=== PATIENT | male | born 1935 | race Caucasian/White ===

== ENCOUNTER 2022-02-26 11:26 | Inpatient (IN) | payer OTHER, MEDICARE ==
[~2022-02-26] VITALS: Ht 177.8 cm; Wt 78.6 kg
[2022-02-26 12:49] LABS: BASO % 0.3 % (0.0-2.0); EOS # 0.1 K/mm3 (0.0-0.7); EOS % 1.5 % (0.0-4.0); GRAN # 3.9 K/mm3 (1.4-6.5); GRAN % 56.3 % (42.2-75.2); HEMATOCRIT 40.3 % (42.0-52.0); HEMOGLOBIN 13.7 g/dl (13.5-18.0); LYMPH # 2.3 K/mm3 (1.2-3.4); LYMPH % 33.9 % (20.0-51.0); MEAN CELL VOLUME 101 fl (80.0-100.0); MEAN CORPUSCULAR HEMOGLOBIN 34 pg (27-31); MEAN CORPUSCULAR HGB CONC 34 g/dl (33.0-37.0); MEAN PLATELET VOLUME 10.5 fl (7.4-10.4); MONO # 0.5 K/mm3 (0.1-0.6); MONO % 7.7 % (1.7-9.3); PLATELET COUNT 214 K/mm3 (130-400); RED BLOOD COUNT 3.99 M/mm3 (4.20-5.60); REDCELL DISTRIBUTION WIDTH-CV 13.3 % (11.5-14.5)
[2022-02-26 13:01] LABS: ALBUMIN 3.9 gm/dL (3.4-4.8); ALKALINE PHOSPHATASE 86 U/L (40-150); ANION GAP 13 mmol/L (7-16); AST,SGOT 12 U/L (5-34); BILIRUBIN,TOTAL 0.8 mg/dL (0.2-1.2); BLOOD UREA NITROGEN 12 mg/dL (8-26); CALCIUM 9.6 mg/dL (8.4-10.2); CARBON DIOXIDE 27 mmol/L (23-31); CHLORIDE 100 mmol/L (98-107); CREATININE, serum 0.74 mg/dL (0.72-1.25); GLUCOSE 102 mg/dL (70-99); LIPASE 27 U/L (8-78); MAGNESIUM 1.3 mg/dL (1.6-2.6); POTASSIUM 4.4 mmol/L (3.5-4.5); SODIUM 140 mmol/L (136-145); TOTAL PROTEIN 7.1 gm/dL (6.2-8.1)
[2022-02-26 13:02] LABS: ALANINE AMINOTRANSFERASE < 6 U/L (0-55)
[2022-02-26 13:20] LABS: TROPONIN-I 0.026 ng/mL (0.00-0.033); TSH w REFLEX 2.697 uIU/mL (0.350-4.940)
[2022-02-26 15:00] VITALS: BP 185/69; PULSE 46; TEMP 98.6
[2022-02-26] MEDS ORDERED: SINEMET 25/101 UDTAB PO (15:25)
[2022-02-26] MEDS ORDERED: COMTAN 200MG T200 MG PO (15:36)
[2022-02-26] MEDS ORDERED: SYNTHROID0.05 MG/TA PO (15:37)
[2022-02-26] MEDS ORDERED: GLUCOTROL 5M5 MG/TAB PO (15:37)
[2022-02-26] MEDS ORDERED: GLUCOPHAGE XR500 M1 PO (15:38)
[2022-02-26] MEDS ORDERED: AZILECT1 MG PO (15:39)
[2022-02-26] MEDS ORDERED: SINEMET CR 50 M1 TER PO (16:03)
[2022-02-26] MEDS ORDERED: FLOMAX 0.40.4 MG/CAP PO (16:04)
[2022-02-26] MEDS ORDERED: LOPRESSOR 225 MG/TAB PO (16:05)
[2022-02-26] MEDS ORDERED: ZESTRIL 10MG10 MG PO (16:05)
[2022-02-26] MEDS ORDERED: ELIQUIS 5MG PO (16:07)
[2022-02-26] MEDS ORDERED: LIPITOR 10MG10 MG PO (16:08)
[2022-02-26] MEDS ORDERED: VITAMIN D31000 IU PO (16:09)
[2022-02-26] MEDS ORDERED: VOLTAREN GEL 1%1 TU TP (16:12)
[2022-02-26 17:16] VITALS: BP 169/63; PULSE 50; TEMP 98.1
--- NOTE | 2022-02-26 18:33 | NUR ---
Patient admitted to room 313 from ED for Afib. Pharmacy, allergies, and medications reviewed. Patient report being allergic to 2 medications, but does not remember what they were. Provider aware. Admission paperwork completed. Patient noted to have glasses and bilateral hearing aides. BP elevated, patient did not take morning BP medications. Jackie aware. Remainder of VSS. Patient A&O. Patient denies any further pain, discomfort, SOA, or further needs at this time. Call light in reach. Fall precautions in place.
--- NOTE | 2022-02-26 19:06 | NUR ---
KEVIN Bird contacted regarding elevated BP. Apresoline orders to be placed.
--- NOTE | 2022-02-26 20:00 | NUR ---
PT SITTING UP IN BED AT THIS TIME, JUST FINISHED 100% OF HIS DINNER. DENIES ANY NEEDS AT THIS TIME. CRITICAL CARE CALLED TO HAVE A LEAD CHECK, ALL LEADS CHECKED AND IN PLACE, UNPLUGGED AND REPLUGGED LEADS, WILL CHECK WITH TELE TO ENSURE PROPER TRASMISSION IS TAKING PLACE. THE PATIENT IS CONTENT AND DOES NOT WANT ANYTHING AT THIS TIME, WILL RETURN FOR ASSESSMENT AND MEDICATIONS.
[2022-02-26 20:18] VITALS: BP 166/61; PULSE 109; TEMP 98.8
[2022-02-26 22:41] VITALS: BP 168/72; PULSE 52; TEMP 98.5
[2022-02-27 03:09] VITALS: BP 157/78; PULSE 57; TEMP 98.6
[2022-02-27 06:36] LABS: BASO % 0.1 % (0.0-2.0); EOS % 0.6 % (0.0-4.0); GRAN # 3.9 K/mm3 (1.4-6.5); GRAN % 54.1 % (42.2-75.2); HEMATOCRIT 41.5 % (42.0-52.0); HEMOGLOBIN 13.5 g/dl (13.5-18.0); LYMPH # 2.6 K/mm3 (1.2-3.4); LYMPH % 36.1 % (20.0-51.0); MEAN CELL VOLUME 104 fl (80.0-100.0); MEAN CORPUSCULAR HEMOGLOBIN 34 pg (27-31); MEAN CORPUSCULAR HGB CONC 33 g/dl (33.0-37.0); MEAN PLATELET VOLUME 11.1 fl (7.4-10.4); MONO # 0.6 K/mm3 (0.1-0.6); PLATELET COUNT 218 K/mm3 (130-400); RED BLOOD COUNT 3.99 M/mm3 (4.20-5.60); REDCELL DISTRIBUTION WIDTH-CV 13.5 % (11.5-14.5)
[2022-02-27 06:43] LABS: ALBUMIN 3.6 gm/dL (3.4-4.8); CALCIUM 9.7 mg/dL (8.4-10.2); CREATININE, serum 0.99 mg/dL (0.72-1.25); MAGNESIUM 1.4 mg/dL (1.6-2.6); PHOSPHOROUS 3.7 mg/dL (2.3-4.7); POTASSIUM 4.1 mmol/L (3.5-4.5)
[2022-02-27 07:43] VITALS: BP 160/78; PULSE 62; TEMP 97.7
--- NOTE | 2022-02-27 08:00 | NUR ---
Pt lying down in bed. VSS taken, BP elevated and P bradycardic. Alert and partially confused. Shift assessment completed. at bedside. Pt remains NPO for possible cardiac procedure. Waiting on [place] to make assessment on the pt. Right Forearm INT in place, no redness or edema. During skin assessment right knee scab noticed and scratch loretta on left side of his body. Fall precautions in place. call light within reach.
[2022-02-27 11:55] VITALS: BP 168/67; PULSE 59; TEMP 97.6
[2022-02-27 15:39] VITALS: BP 145/64; PULSE 62; TEMP 97.8
--- NOTE | 2022-02-27 16:51 | NUR ---
home worker met with patient to complete intake and discuss discharge plan. Patient reports that he lives at home with his Linh ([phone]) in [place]. Patient states that he has to get help with most of his ADL's sfrom his but that "she is disabled as well". Patient states he utilizes a rollator walker to assist with ambultation. He utilizes the [facility] and [facility] ([facility] for PCP needs [facility]. Unknown at this time if the patient has a DPOA-HC established. Discharge plan: pending PT/OT rec's
--- NOTE | 2022-02-27 17:57 | NUR ---
Pt repotitioned in his recliner. Assissted ordering dinner and pt requested help to use the commode. Skin on left side of buttocks has some shear. While helping him to sit back on his commode noticed some redness on left leg and pt expressed some tenderness on bilateral lower extremities as well. Dr Montalvo notified. Call light within reach.
--- NOTE | 2022-02-27 19:22 | NUR ---
THE PATIENT IS SLEEPING AT THIS TIME. HE IS SNORING, WILL HAVE HIS CPAP PUT ON. WILL RETURN FOR NIGHT MEDICINE AND ASSESSMENT BEFORE PUTTING HIS CPAP ON.
[2022-02-27 19:27] VITALS: BP 146/65; PULSE 66; TEMP 98.6
[2022-02-27 22:21] LABS: COLLECTION METHOD CLEAN CATCH
[2022-02-27 22:23] LABS: SQUAMOUS EPITHELIAL None Seen /hpf (0-10); URINE BACTERIA None Seen /hpf (NONE SEEN); URINE RBC 0-2 /hpf (0-2)
[2022-02-27 22:24] LABS: URINE APPEARANCE Clear (CLEAR/HAZY); URINE BLOOD Negative (NEGATIVE); URINE COLOR Yellow (YELLOW); URINE GLUCOSE TRACE (NEGATIVE); URINE KETONE Negative (NEGATIVE); URINE NITRATE Negative (NEGATIVE); URINE PROTEIN(semi-quant) Negative (NEGATIVE); URINE UROBILINOGEN 0.2 E.U/dL (0.2-1.0)
[2022-02-27 23:55] VITALS: BP 141/68; PULSE 69; TEMP 98.1
[2022-02-28] VITALS (10 sets, daily range): BP systolic 109–154; BP diastolic 46–104; PULSE 61–92; TEMP 97.4–98.7
--- NOTE | 2022-02-28 05:26 | NUR ---
PT HAS HAD AN UNEVENTFUL NIGHT. HAD A DIFFICULT TIME SLEEPING HE WAS UP TO USE THE BATHROOM AND TO COUGH UP SPIT A LOT. DENIES ANY PAIN, HOWEVER COULD NOT GET COMFORTABLE. NO OTHER CONCERNS FROM THE PATIENT AT THIS TIME. PT IS NPO FOR THE PLACEMENT ON HIS PACEMAKER PLANNED FOR TODAY.
[2022-02-28 06:08] LABS: BASO % 0.2 % (0.0-2.0); EOS # 0.1 K/mm3 (0.0-0.7); GRAN # 4.6 K/mm3 (1.4-6.5); GRAN % 57.3 % (42.2-75.2); HEMATOCRIT 40.2 % (42.0-52.0); HEMOGLOBIN 13.4 g/dl (13.5-18.0); LYMPH # 2.6 K/mm3 (1.2-3.4); LYMPH % 32.6 % (20.0-51.0); MEAN CELL VOLUME 103 fl (80.0-100.0); MEAN CORPUSCULAR HEMOGLOBIN 34 pg (27-31); MEAN CORPUSCULAR HGB CONC 33 g/dl (33.0-37.0); MEAN PLATELET VOLUME 10.9 fl (7.4-10.4); MONO # 0.7 K/mm3 (0.1-0.6); MONO % 8.5 % (1.7-9.3); PLATELET COUNT 201 K/mm3 (130-400); RED BLOOD COUNT 3.91 M/mm3 (4.20-5.60); REDCELL DISTRIBUTION WIDTH-CV 13.4 % (11.5-14.5)
[2022-02-28 06:27] LABS: ALBUMIN 3.3 gm/dL (3.4-4.8); CALCIUM 9.1 mg/dL (8.4-10.2); CREATININE, serum 0.83 mg/dL (0.72-1.25); MAGNESIUM 1.5 mg/dL (1.6-2.6); PHOSPHOROUS 3.2 mg/dL (2.3-4.7); POTASSIUM 4.1 mmol/L (3.5-4.5)
--- NOTE | 2022-02-28 16:56 | NUR ---
side door worker met with patient,patient's and patient's son at bedside to discuss discharge plan. SW review PT/OT recommendations of skilled therapy. Patient's reports that the patient has been to [facility] multiple times in the past. Caridology arrives to take patient for heart cath. Patient's clinical referral faxed to: [facility]
--- NOTE | 2022-02-28 18:00 | NUR ---
PATIENT AWAKE, ALERT AND ORIENTED. NO COMPLAINTS AT THIS TIME. SITTING UP IN BED. ICE TO L UPPER CHEST. VITAL SIGNS STABLE. PATIENT CURRENTLY EATING, WITH NO DIFFICULTYS. DOES NEED ASSISTANCE TO EAT AND DRINK.
[2022-03-01 04:55] VITALS: BP 133/65; PULSE 76; TEMP 97.4
[2022-03-01 06:11] LABS: BASO % 0.2 % (0.0-2.0); EOS # 0.1 K/mm3 (0.0-0.7); EOS % 0.8 % (0.0-4.0); GRAN # 5.8 K/mm3 (1.4-6.5); HEMATOCRIT 39.6 % (42.0-52.0); HEMOGLOBIN 13.8 g/dl (13.5-18.0); LYMPH # 2.3 K/mm3 (1.2-3.4); LYMPH % 25.9 % (20.0-51.0); MEAN CELL VOLUME 100 fl (80.0-100.0); MEAN CORPUSCULAR HEMOGLOBIN 35 pg (27-31); MEAN CORPUSCULAR HGB CONC 35 g/dl (33.0-37.0); MEAN PLATELET VOLUME 11.2 fl (7.4-10.4); MONO # 0.7 K/mm3 (0.1-0.6); MONO % 7.9 % (1.7-9.3); PLATELET COUNT 198 K/mm3 (130-400); RED BLOOD COUNT 3.95 M/mm3 (4.20-5.60); REDCELL DISTRIBUTION WIDTH-CV 13.2 % (11.5-14.5)
[2022-03-01 06:35] LABS: ALBUMIN 3.2 gm/dL (3.4-4.8); CALCIUM 8.8 mg/dL (8.4-10.2); CREATININE, serum 0.86 mg/dL (0.72-1.25); MAGNESIUM 1.5 mg/dL (1.6-2.6); PHOSPHOROUS 3.2 mg/dL (2.3-4.7); POTASSIUM 4.1 mmol/L (3.5-4.5)
[2022-03-01 07:19] VITALS: BP 138/76; PULSE 78; TEMP 98
[2022-03-01 11:31] VITALS: BP 120/60; PULSE 72; TEMP 98.1
--- NOTE | 2022-03-01 12:12 | NUR ---
Nathalie with [facility] is unable to accept this patient as they do not have a bed.
[2022-03-01 16:01] VITALS: BP 94/56; BP 994/56; PULSE 69; TEMP 98
--- NOTE | 2022-03-01 19:18 | NUR ---
BEGINNING OF SHIFT: PATIENT RESTING QUIETLY IN BED. PATIENT DENIES NEEDS.
[2022-03-01 19:49] VITALS: BP 100/56; PULSE 70; TEMP 97.6
[2022-03-02] VITALS (12 sets, daily range): BP systolic 90–132; BP diastolic 50–77; PULSE 65–98; TEMP 97.6–98.5
--- NOTE | 2022-03-02 01:17 | NUR ---
PATIENT BLOOD PRESSURE 90/50 MANUALLY. PROVIDER NOTIFIED AND RECEIVED ORDER FOR 500 ML BOLUS OF NS. PATIENT BLOOD PRESSURE RECHECK AFTER BOLUS WAS 99/55.
[2022-03-02 06:04] LABS: BASO % 0.2 % (0.0-2.0); EOS # 0.1 K/mm3 (0.0-0.7); GRAN # 4.6 K/mm3 (1.4-6.5); GRAN % 57.4 % (42.2-75.2); HEMATOCRIT 37.1 % (42.0-52.0); HEMOGLOBIN 12.8 g/dl (13.5-18.0); LYMPH # 2.6 K/mm3 (1.2-3.4); LYMPH % 32.1 % (20.0-51.0); MEAN CELL VOLUME 101 fl (80.0-100.0); MEAN CORPUSCULAR HEMOGLOBIN 35 pg (27-31); MEAN CORPUSCULAR HGB CONC 35 g/dl (33.0-37.0); MEAN PLATELET VOLUME 11.1 fl (7.4-10.4); MONO # 0.7 K/mm3 (0.1-0.6); MONO % 9.1 % (1.7-9.3); PLATELET COUNT 162 K/mm3 (130-400); RED BLOOD COUNT 3.68 M/mm3 (4.20-5.60); REDCELL DISTRIBUTION WIDTH-CV 13.1 % (11.5-14.5)
[2022-03-02 06:23] LABS: ALBUMIN 2.9 gm/dL (3.4-4.8); CALCIUM 8.4 mg/dL (8.4-10.2); CREATININE, serum 0.74 mg/dL (0.72-1.25); MAGNESIUM 1.7 mg/dL (1.6-2.6); PHOSPHOROUS 3.1 mg/dL (2.3-4.7); POTASSIUM 3.9 mmol/L (3.5-4.5)
--- NOTE | 2022-03-02 06:27 | NUR ---
END OF SHIFT NOTE: PATIENT RESTED QUIETLY THIS SHIFT. PATIENT RECEIVED NO PRN MEDICATIONS. PATIENT MADE NPO AT MIDNIGHT FOR UPCOMING PROCEDURE. PATIENT REPORTED NEEDING TO VOID THIS AM AND THEN STATED THE URGE WAS GONE. PATIENT ENDED UP URINATING 250 CC THEN BLADDER SCANNED. PATIENT NOTED TO HAVE 420 POST VOID RESIDUAL AND ORDER RECEIVED TO STRAIGHT CATH ONCE. ABLE TO REMOVE 450 CC OF URINE FROM STRAIGHT CATH. URINE NOTED TO BE BROWN ORANGE IN COLOR. PATIENT TOLERATED WELL.
--- NOTE | 2022-03-02 16:17 | NUR ---
Clinical updates faxed to Otto at [facility]. Patient's clinical referral faxed to [facility] in [place].
--- NOTE | 2022-03-02 18:00 | NUR ---
Patient has had an ok day. Shift assessment completed. Scheduled medications given. ELIZA and cardioversion completed. Post op vitals WNL. Patient has had good ouput for this RN this shift. One episode of dysuria this AM, no further episodes this shift. Patient denies any pain, discomfort, SOA, or further needs a this time. Call light in reach. Fall precuations in place.
[2022-03-03] VITALS (7 sets, daily range): BP systolic 116–149; BP diastolic 62–73; PULSE 69–75; TEMP 97.3–98.5
--- NOTE | 2022-03-03 05:30 | NUR ---
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 PT RESTING IN BED WATCHING THE NEWS. PT REQUESTED HELP EATING. I WAS IN WITH PT HELPING HIM EAT FOR ALMOST AN HOUR, OUR LONE AID WAS BUSY HELPING OTHER PTs. PT DENIED GENERAL PAIN, CHEST PAIN, PALPITATIONS, N,V,D, SOB OR DIZZINESS. PT'S URINE WAS DARK VIVIANA. PT ENCOURAGED TO DRINK. WILL CONTINUE TO MONITOR. FALL PRECAUTIONS IN PLACE. PT EXPRESSED NO ADDITIONAL NEEDS AT THIS TIME. CALL LIGHT WITHIN REACH.
[2022-03-03 06:07] LABS: BASO % 0.3 % (0.0-2.0); EOS # 0.1 K/mm3 (0.0-0.7); EOS % 1.5 % (0.0-4.0); GRAN # 3.3 K/mm3 (1.4-6.5); GRAN % 54.4 % (42.2-75.2); HEMOGLOBIN 11.9 g/dl (13.5-18.0); LYMPH % 33.7 % (20.0-51.0); MEAN CELL VOLUME 102 fl (80.0-100.0); MEAN CORPUSCULAR HEMOGLOBIN 35 pg (27-31); MEAN CORPUSCULAR HGB CONC 34 g/dl (33.0-37.0); MONO # 0.6 K/mm3 (0.1-0.6); MONO % 9.9 % (1.7-9.3); PLATELET COUNT 157 K/mm3 (130-400); RED BLOOD COUNT 3.45 M/mm3 (4.20-5.60); REDCELL DISTRIBUTION WIDTH-CV 13.2 % (11.5-14.5)
[2022-03-03 06:29] LABS: ALBUMIN 2.7 gm/dL (3.4-4.8); CALCIUM 8.4 mg/dL (8.4-10.2); CREATININE, serum 0.73 mg/dL (0.72-1.25); MAGNESIUM 1.5 mg/dL (1.6-2.6); PHOSPHOROUS 2.7 mg/dL (2.3-4.7); POTASSIUM 4.1 mmol/L (3.5-4.5)
[2022-03-03 06:35] LABS: HEMATOCRIT 35.3 % (42.0-52.0)
--- NOTE | 2022-03-03 08:27 | NUR ---
IV's flushed per protocol. No s/s of complications at this time.
--- NOTE | 2022-03-03 11:00 | NUR ---
Pt describe soarness on his left heel. During skin assessment, heel looks red and blanchable. Provider and RN notified. Off loading boots on feet to prevent any skin breakouts. Call light within reach.
--- NOTE | 2022-03-03 13:11 | NUR ---
Pt lying down in bed. Shift assessment completed. VSS. A&O x4. Pt requested to get his hearing aids batteries changed. Denies any pain. Pt stated feeling itchiness on his face. Reported to provider. Left Hand INT CDI, no redness or edema. Right hand INT CDI. Rechecked Telemetry leads, they remain in place. Call light within reach.
--- NOTE | 2022-03-03 18:52 | NUR ---
Pt sitting down in recliner ate 100% of his dinner. Medications administrated. Left heel still feel tender but denies any other pain or needs besides that. Call light within reach.
--- NOTE | 2022-03-03 19:24 | NUR ---
PATIENT SITTING AT BEDSIDE IN RECLINER WATCHING TELEVISION. PATIENT STATES HIS DAY HAS GONE BETTER TODAY AND DENIES PAIN, NEEDS OR CONCERNS. PATIENT HAS CALL LIGHT WITHIN REACH AND IS ENCOURAGED TO CALL WITH ANY NEEDS OR CONCERNS.
[2022-03-04 04:07] VITALS: BP 125/85; PULSE 71; TEMP 97.5
--- NOTE | 2022-03-04 05:38 | NUR ---
PATIENT HAS HAD AN UNEVENTFUL NIGHT. PATIENT SHOWS NO SIGNS OF PAIN OR CONCERNS AT THIS TIME. PATIENT HAS CALL LIGHT WITHIN REACH.
[2022-03-04 06:49] LABS: CALCIUM 8.6 mg/dL (8.4-10.2); CREATININE, serum 0.75 mg/dL (0.72-1.25); MAGNESIUM 1.7 mg/dL (1.6-2.6); POTASSIUM 4.8 mmol/L (3.5-4.5)
--- NOTE | 2022-03-04 06:54 | NUR ---
appears to be sleeping, bedside shift report received from LUZ Bermeo
[2022-03-04 07:43] VITALS: BP 147/58; PULSE 73; TEMP 97.8
--- NOTE | 2022-03-04 08:20 | NUR ---
physical therapy in to work with patient, with therapist and DIRECTOR CAMP assisted him out of bed and into recliner for breakfast, DIRECTOR CAMP assisting him with eating breakfast, patient denies pain or needs at this time
--- NOTE | 2022-03-04 09:15 | NUR ---
remains resting in chair after breakfast, full assessment completed, see interventions for further info, c/o discomfort to left heel, heel is red but not open, heels floated with pillow and he states this helps
--- NOTE | 2022-03-04 11:05 | NUR ---
remains up in chair, appears to be dozing, resp quiet and easy
[2022-03-04 11:39] VITALS: BP 146/95; PULSE 66; TEMP 98.1
--- NOTE | 2022-03-04 11:50 | NUR ---
sitting up in chair and eating lunch with assistance of CARTRIDGE LOADER
--- NOTE | 2022-03-04 14:00 | NUR ---
remains up in chair, denies any n eeds
[2022-03-04 15:23] VITALS: BP 143/68; PULSE 70; TEMP 97.8
--- NOTE | 2022-03-04 16:00 | NUR ---
family in to visit
--- NOTE | 2022-03-04 17:54 | NUR ---
had supper and tolerated well, assisted with HUMAN RESOURCES PROFESSIONAL and myself to help him back to bed,
--- NOTE | 2022-03-04 18:37 | NUR ---
bedside shift report given to LUZ Bermeo
--- NOTE | 2022-03-04 19:00 | NUR ---
PATIENT LAYING IN BED WITH EYES CLOSED AND TELEVISION ON. THIS NURSE RECEIVES BEDSIDE REPORT AND PATIENT DOES NOT STIR. PATIENT SHOWS NO SIGNS OR SYMPTOMS OF PAIN OR NEEDS AT THIS TIME. PATIENT IS HOLDING CALL LIGHT IN HIS HANDS.
[2022-03-04 20:01] VITALS: BP 129/58; PULSE 73; TEMP 97.7
[2022-03-05 00:57] VITALS: BP 105/61; PULSE 85; TEMP 98.8
[2022-03-05 04:48] VITALS: BP 99/60; PULSE 70; TEMP 97.4
[2022-03-05 07:06] LABS: CALCIUM 8.8 mg/dL (8.4-10.2); CREATININE, serum 0.74 mg/dL (0.72-1.25); POTASSIUM 4.7 mmol/L (3.5-4.5)
[2022-03-05 07:22] LABS: MAGNESIUM 1.6 mg/dL (1.6-2.6)
[2022-03-05 07:52] VITALS: BP 141/66; PULSE 70; TEMP 98
--- NOTE | 2022-03-05 08:00 | NUR ---
Patient is in room finishing breakfast with assistance. Alert and oriented x 4, VSS. Telemetry in place, paced. Stated he had a good night. Assessment completed, meds provided. No other needs at this time. Call light within reach.
[2022-03-05 11:38] VITALS: BP 123/67; BP 137/83; PULSE 74; PULSE 90; TEMP 97.8
[2022-03-05] MEDS ORDERED: PACERONE400 MG PO (14:06)
[2022-03-05] MEDS ORDERED: DULCOLAX S10 MG/SUPP RC (14:07)
[2022-03-05] MEDS ORDERED: MIRALAX PA17 GM/Dose PO (14:08)
[2022-03-05] MEDS ORDERED: SENNA-S 50 MG-81 TAB PO (14:08)
[2022-03-05] MEDS ORDERED: METAMUCIL3.4 GM/DOS PO (14:08)
[2022-03-05] MEDS ORDERED: HYDROCORTISON28.4 GM TP (14:09)
[2022-03-05] MEDS ORDERED: NOVLOG SQ (14:10)
[2022-03-05] MEDS ORDERED: MAG-OX 400400 MG/TAB PO (14:12)
[2022-03-05 15:38] VITALS: BP 123/67; PULSE 74; TEMP 97.8
--- NOTE | 2022-03-05 16:13 | NUR ---
Patient was picked up by [facility] senior patient account representative. Telemetry and IV access were discontinued. Pt assisted to be dressed. He was accompanied by staff by wheelchair. Report given to LUZ Cohen at [facility].
--- NOTE | 2022-03-05 16:19 | NUR ---
Valve Mechanic faxed updates to [facility], [facility], [facility], and [facility]. [facility] not [facility] available today. China at [facility] declined referral and Adia at [facility] continues to review referral. 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 Patient's , Linh advised the issue has been ongoing and they do not know how to resolve it. Linh advised they completed DPOA-HC through employment attorney, Floyd Beltrán. SHADI contacted his office and obtained a copy of DPOA-HC. SHADI faxed it to Otto at [facility] then placed it in patient's chart. [facility] then advised they can accept patient today. SHADI faxed discharge orders and negative covid results from today's rapid test to [facility]. Transport set for 1530. SHADI provided transport time to patient and patient's , both are in agreement with discharge to [facility] today. Discharge Plan: [facility]
== END 2022-03-05 15:30 | DRG 243 ==
LOC: COL.ER 11:26 → MEDICAL 13:47
PROVIDERS: Emergency Medicine; Internal Medicine; Nurse Practitioner; ADMIT Internal Medicine
PROC: 0JH606Z Insertion of Pacemaker, Dual Chamber into Chest Subcutaneous Tissue and Fascia, Open Approach (ICD-10-PCS; principal; 2022-02-28)
PROC: 02H63JZ Insertion of Pacemaker Lead into Right Atrium, Percutaneous Approach (ICD-10-PCS; 2022-02-28)
PROC: 02HK3JZ Insertion of Pacemaker Lead into Right Ventricle, Percutaneous Approach (ICD-10-PCS; 2022-02-28)
PROC: 5A2204Z Restoration of Cardiac Rhythm, Single (ICD-10-PCS; 2022-03-02)
DX: I49.5 Sick sinus syndrome (principal); I48.19 Other persistent atrial fibrillation; E11.9 Type 2 diabetes mellitus without complications; I10 Essential (primary) hypertension; E03.9 Hypothyroidism, unspecified; G20 Parkinson's disease; E78.5 Hyperlipidemia, unspecified; Z20.822 Contact with and (suspected) exposure to COVID-19; N40.0 Benign prostatic hyperplasia without lower urinary tract symptoms; R07.9 Chest pain, unspecified; E83.42 Hypomagnesemia; K59.00 Constipation, unspecified; I95.9 Hypotension, unspecified; Z79.890 Hormone replacement therapy; Z79.01 Long term (current) use of anticoagulants; Z79.84 Long term (current) use of oral hypoglycemic drugs; Z87.891 Personal history of nicotine dependence; Z88.8 Allergy status to other drugs, medicaments and biological substances
CPT/HCPCS: OP; C1785; C1894; C1898; G0378; J0282; J0690; J1815; J2250; J2704; J3010; J3475; J7030; Q9967

== ENCOUNTER 2022-09-15 13:48 | Emergency (ER) | payer OTHER, MEDICARE ==
[~2022-09-15 13:48] MED LIST: AZILECT1 MG PO; COMTAN 200MG T200 MG PO; DULCOLAX S10 MG/SUPP RC; ELIQUIS 5MG PO; FLOMAX 0.40.4 MG/CAP PO; GLUCOPHAGE XR500 M1 PO; GLUCOTROL 5M5 MG/TAB PO; HYDROCORTISON28.4 GM TP; LIPITOR 10MG10 MG PO; LOPRESSOR 225 MG/TAB PO; MAG-OX 400400 MG/TAB PO; METAMUCIL3.4 GM/DOS PO; MIRALAX PA17 GM/Dose PO; NOVLOG SQ; PACERONE400 MG PO; SENNA-S 50 MG-81 TAB PO; SINEMET 25/101 UDTAB PO; SINEMET CR 50 M1 TER PO; SYNTHROID0.05 MG/TA PO; VITAMIN D31000 IU PO; VOLTAREN GEL 1%1 TU TP; ZESTRIL 10MG10 MG PO
[2022-09-15 16:15] VITALS: BP 138/89; PULSE 76; TEMP 97.8
== END 2022-09-15 16:15 | disposition home or self-care (01) ==
LOC: COL.ER 13:48
DX: S00.212A Abrasion of left eyelid and periocular area, initial encounter (principal); M50.30 Other cervical disc degeneration, unspecified cervical region; R94.31 Abnormal electrocardiogram [ECG] [EKG]; Z79.01 Long term (current) use of anticoagulants; Z28.310 Unvaccinated for COVID-19; W18.30XA Fall on same level, unspecified, initial encounter

== ENCOUNTER 2024-01-02 19:32 | Inpatient (IN) | payer MEDICARE, MEDICAID ==
[~2024-01-02] VITALS: Ht 177.8 cm; Wt 98.2 kg
[2024-01-02 20:42] LABS: COLLECTION METHOD RANDOM VOIDED
[2024-01-02 20:46] LABS: URINE APPEARANCE CLEAR (CLEAR/HAZY); URINE BLOOD NEGATIVE (NEGATIVE); URINE COLOR Dark Yellow (YELLOW); URINE GLUCOSE NEGATIVE (NEGATIVE); URINE KETONE TRACE (NEGATIVE); URINE NITRATE NEGATIVE (NEGATIVE); URINE PROTEIN(semi-quant) NEGATIVE (NEGATIVE)
[2024-01-02] MEDS ORDERED: fentaNYL 50 MCG/ML 2 ML VIAL IV ONE (21:00)
[2024-01-02] MEDS ORDERED: Morphine 4 MG/ML VIAL IV PRN (21:30)
[2024-01-02] MEDS ORDERED: oxyCODONE 5 MG TAB PO PRN (21:30)
[2024-01-02] MEDS ORDERED: Naloxone 0.4 MG/ML VIAL IV PRN (21:30)
[2024-01-02] MEDS ORDERED: CORDARONE200 MG/TAB PO (21:58)
[2024-01-02] MEDS ORDERED: REQUIP0.25 MG PO (21:58)
[2024-01-02] MEDS ORDERED: BASAGLAR K100 UNIT/1 SQ (22:02)
[2024-01-02] MEDS ORDERED: SYNTHROID0.1 MG/TAB PO (22:04)
[2024-01-02] MEDS ORDERED: Acetaminophen 500 MG TAB PO SCH (22:16)
--- NOTE | 2024-01-02 22:20 | NUR ---
Patient arrived to room 328 at this time via stretcher. Transferred to bed x4 assist. Oriented to room/policy. VS stable. A&Ox3. Assessment complete. Noted to have an abrasion to left great toe that is scabbed over and healing. Also noted to have redness and skaling skin to left heel. Appears to have had a previous ulceration that has healed in this area. Balbir hose not applied due to this and heel mepilex applied. Yellow fall risk initiated. INT to right hand-20 g flushes without difficulty. Morphine given at this time. Navarro traction applied with 10lbs of weight. Hip bump applied as well. Refused kapoor cath placement stating he wants to use the urinal. Plan of care discussed for this shift to include3 pain control/meds/calling for questions/concerns. Call light in reach/bed alarm on. Will monitor.
[2024-01-02 22:28] VITALS: BP 115/70; PULSE 163; PULSE 84; TEMP 97.5
[2024-01-02] MEDS ORDERED: B-121000 MCG PO (22:45)
[2024-01-02] MEDS ORDERED: NORCO 325 MG-51 TAB PO (22:46)
[2024-01-02] MEDS ORDERED: MUCINEX 60600 MG/TA1 PO (22:47)
[2024-01-02] MEDS ORDERED: LIQUIFILM TEARS15 ML OU (22:48)
[2024-01-02] MEDS ORDERED: TYLENOL 500MG500 MG PO (22:49)
[2024-01-02 22:56] LABS: BASO % 0.2 % (0.0-2.0); EOS % 0.2 % (0.0-4.0); GRAN # 12.4 K/mm3 (1.4-6.5); GRAN % 84.7 % (42.2-75.2); HEMOGLOBIN 10.8 g/dl (13.5-18.0); LYMPH # 1.3 K/mm3 (1.2-3.4); LYMPH % 8.7 % (20.0-51.0); MEAN CELL VOLUME 94 fl (80.0-100.0); MEAN CORPUSCULAR HEMOGLOBIN 33 pg (27-31); MEAN CORPUSCULAR HGB CONC 36 g/dl (33.0-37.0); MEAN PLATELET VOLUME 9.4 fl (7.4-10.4); MONO # 0.9 K/mm3 (0.1-0.6); MONO % 5.8 % (1.7-9.3); PLATELET COUNT 192 K/mm3 (130-400); RED BLOOD COUNT 3.23 M/mm3 (4.20-5.60); REDCELL DISTRIBUTION WIDTH-CV 12.7 % (11.5-14.5)
[2024-01-02 22:57] LABS: HEMATOCRIT 30.4 % (42.0-52.0)
[2024-01-02 22:59] LABS: INR 1.4 (0.8-3.0); PROTHROMBIN TIME 15.5 SECONDS (9.7-12.8)
[2024-01-02 23:12] LABS: ALBUMIN 3.5 g/dL (3.4-4.8); BILIRUBIN,TOTAL 0.4 mg/dL (0.2-1.2); CALCIUM 8.7 mg/dL (8.4-10.2); CREATININE, serum 0.87 mg/dL (0.72-1.25); POTASSIUM 5.1 mEq/L (3.5-4.5); TOTAL PROTEIN 5.7 g/dl (6.2-8.1)
[2024-01-03] VITALS (12 sets, daily range): BP systolic 109–151; BP diastolic 65–81; PULSE 63–70; TEMP 97.4–98.2
--- NOTE | 2024-01-03 00:50 | NUR ---
Patient is moaning out in pain after bucks traction applied. Spoke with JAZMIN Vaughan and now dose of morphine 2mg ordered and given. Will continue to monitor.
[2024-01-03] MEDS ORDERED: Morphine 4 MG/ML VIAL IV ONE (01:00)
--- NOTE | 2024-01-03 02:53 | NUR ---
Patient heard at nursing station moaning out. Rating pain 7/10 on pain scale to right hip. Oxycodone given per dr order.
[2024-01-03] MEDS ORDERED: GLUCOPHAGE500 MG/TAB PO (05:52)
[2024-01-03] MEDS ORDERED: MIRALAX PA17 GM/Dose PO (05:56)
[2024-01-03] MEDS ORDERED: NOVOLOG FLEX100 U/ML SQ ×2 (05:57→08:54)
[2024-01-03] MEDS ORDERED: hydrALAZINE 20 MG/ML 1 ML VIAL IV PRN (06:00)
[2024-01-03] MEDS ORDERED: Polyethylene Glycol 3350 17 GM PDS PO SCH ×2 (06:00→09:00)
[2024-01-03] MEDS ORDERED: Furosemide 40 MG/4 ML VIAL IV ONE (06:15)
--- NOTE | 2024-01-03 06:15 | NUR ---
ATtempt made to call [facility] to get clarification on insulin dosing. Answering machine picked up stating to call back at 0800. Will pass on in report to dayshift nurse to try again.
[2024-01-03] MEDS ORDERED: Glucagon 1 MG VIAL IM PRN (06:30)
[2024-01-03] MEDS ORDERED: Dextrose (Glucose) 15 GM (4 x 3.75 GM) Chewable TABLET PACK PO PRN (06:30)
[2024-01-03] MEDS ORDERED: Dextrose 50% Water 25 GM/50 ML SYRINGE IV PRN (06:30)
--- NOTE | 2024-01-03 06:38 | NUR ---
notified of cardiology consult @ 0253. Pt states his primary child support case officer is .
--- NOTE | 2024-01-03 06:45 | NUR ---
PT RESTING IN BED. PT IS AXOX4 BUT FORGETFUL. PT IS WEARING 2L NC BUT RA AT BASELINE. PT IS NOT ON TELE. PT HAS CALL LIGHT AND INSTRUCTED TO CALL WITH ALL NEEDS. PT IS A HIGH FALL RISK, BEDALARM ACTIVE AND FALL PRECAUTIONS IN PLACE.
[2024-01-03 07:13] LABS: CALCIUM 9.5 mg/dL (8.4-10.2); CREATININE, serum 0.98 mg/dL (0.72-1.25); MAGNESIUM 1.6 mg/dL (1.6-2.6); PHOSPHOROUS 3.6 mg/dL (2.3-4.7); POTASSIUM 5.3 mEq/L (3.5-4.5)
[2024-01-03 07:34] LABS: THYROID STIMULATING HORMONE 1.874 uIU/mL (0.350-4.940); TSH w REFLEX 1.874 uIU/mL (0.350-4.940)
[2024-01-03] MEDS ORDERED: Magnesium Oxide 400 MG TAB PO SCH (08:00)
[2024-01-03] MEDS ORDERED: Insulin Lispro (HumaLOG) SQ SCH (08:00)
[2024-01-03] MEDS ORDERED: Carbidopa/Levodopa CR 25-100MG TAB PO SCH (09:00)
[2024-01-03] MEDS ORDERED: rOPINIRole 0.5 MG TAB PO SCH (09:00)
[2024-01-03] MEDS ORDERED: Hydrocortisone 1% Cream 30 GM TUBE TP SCH (09:00)
[2024-01-03] MEDS ORDERED: guaiFENesin ER 600 MG **** subs to guaiFENesin 200 MG PO SCH (09:00)
[2024-01-03] MEDS ORDERED: Amiodarone 200 MG TAB PO SCH (09:00)
[2024-01-03] MEDS ORDERED: Carboxymethylcellulose PF Ophth 0.4 ML DROPPERETTE OP SCH (09:00)
[2024-01-03] MEDS ORDERED: Cyanocobalamin (Vit B-12) 1,000 MCG TAB PO SCH (09:00)
[2024-01-03] MEDS ORDERED: guaiFENesin 200 MG TAB PO SCH (09:00)
[2024-01-03] MEDS ORDERED: Cholecalciferol (Vit D3) 1000 Units TAB PO SCH (09:00)
[2024-01-03] MEDS ORDERED: Magnesium Sulfate 4% 50 ML IV ONE (09:30)
--- NOTE | 2024-01-03 10:37 | NUR ---
Pt had a large incontinent void. Pt is alot of pain when turning and cleaning. Asked PT about indwelling kapoor and pt agreeable to. Indwelling kapoor place. Vicki urine returned. Urine sent to lab.
--- NOTE | 2024-01-03 10:50 | NUR ---
1010-THIS RN CALLED LAB REGARDING AM CBC NOT COLLECTED. THEY STATED THEY WOULD LOOK AND FIND OUT. 1050-CALLED LAB AGAIN REGARDING AM CBC. STATES THEY BELEIVE THEY HAVE BLOOD IN LAB AND WILL RUN IT.
[2024-01-03 10:59] LABS: BASO % 0.2 % (0.0-2.0); EOS % 0.1 % (0.0-4.0); GRAN # 7.9 K/mm3 (1.4-6.5); GRAN % 77.5 % (42.2-75.2); HEMATOCRIT 29.5 % (42.0-52.0); HEMOGLOBIN 10.3 g/dl (13.5-18.0); LYMPH # 1.5 K/mm3 (1.2-3.4); LYMPH % 14.4 % (20.0-51.0); MEAN CELL VOLUME 95 fl (80.0-100.0); MEAN CORPUSCULAR HEMOGLOBIN 33 pg (27-31); MEAN CORPUSCULAR HGB CONC 35 g/dl (33.0-37.0); MEAN PLATELET VOLUME 10.7 fl (7.4-10.4); MONO # 0.7 K/mm3 (0.1-0.6); MONO % 7.3 % (1.7-9.3); PLATELET COUNT 207 K/mm3 (130-400)
[2024-01-03 11:15] LABS: CALCIUM 9.4 mg/dL (8.4-10.2); CREATININE, serum 0.96 mg/dL (0.72-1.25)
[2024-01-03 11:20] LABS: POTASSIUM 5.8 mEq/L (3.5-4.5)
--- NOTE | 2024-01-03 11:27 | NUR ---
notified of K level and NA level. Orders received.
[2024-01-03] MEDS ORDERED: Sodium Zirconium Cyclosilicate for Oral Susp 10 GM PACKET PO SCH (11:30)
--- NOTE | 2024-01-03 13:14 | NUR ---
service worker helper met with pt and in room to discuss discharge planning. She reports he is from [facility]. Linh, is DPOA-HC and copy is on file. She reports pt needs full assistance with ADLS and uses a wheelchair at [facility]. They obtain medications from [facility] with no issues. SW discussed likelihood of needing rehab with . She reports enjoying and pt being comfortable with [facility] so she would like him to return there for SNF. SHADI advised she will assist with this. SHADI emailed updates to Otto at [facility]. He confirmed pt is there for LTC. Discharge Plan: return to [facility]
[2024-01-03 16:40] LABS: ALBUMIN 3.2 g/dL (3.4-4.8); BILIRUBIN,TOTAL 0.6 mg/dL (0.2-1.2); CALCIUM 9.4 mg/dL (8.4-10.2); CREATININE, serum 1.02 mg/dL (0.72-1.25); POTASSIUM 5.3 mEq/L (3.5-4.5); TOTAL PROTEIN 5.7 g/dl (6.2-8.1)
[2024-01-03] MEDS ORDERED: NS 1,000 ML IV ONE (17:00)
--- NOTE | 2024-01-03 20:00 | NUR ---
Assessment complete. A&Ox3. Denies nausea/shortness of breath. VS stable. Rating pain 6/10 on pain scale-described as constant ache-oxycodone given per dr mckeon. CUrrently in bucks traction with good alignment. Clear yellow urine to kapoor cath. Patient asking when surgery will be. Explained it was going to be postponed due to eliquis. Verbalizes understanding. Call light in reach. Will monitor.
--- NOTE | 2024-01-03 20:20 | NUR ---
of patient called upset that no one returned call to discuss surgery time. Explained its currently no scheduled due to dick and once determined we would notify. Will pass on in report to notify spouse of surgery time.
[2024-01-03] MEDS ORDERED: Atorvastatin 10 MG TAB PO SCH (21:00)
[2024-01-03] MEDS ORDERED: Insulin Glargine-ygfn (Lantus) SQ SCH (21:00)
[2024-01-03 23:30] LABS: CALCIUM 8.4 mg/dL (8.4-10.2); CREATININE, serum 0.84 mg/dL (0.72-1.25); POTASSIUM 5.2 mEq/L (3.5-4.5)
[2024-01-04] VITALS (11 sets, daily range): BP systolic 129–157; BP diastolic 66–72; PULSE 67–69; TEMP 98–98.6
--- NOTE | 2024-01-04 00:44 | NUR ---
JAZMIN Vaughan notified of BMP results. New orders received and initiated. Will monitor.
--- NOTE | 2024-01-04 03:35 | NUR ---
Patient repositioned in bed with bucks traction in place. C/O pain to right hip-rating pain 8/10 on pain scale-oxycodone given per dr order. Attempted to straighten leg out with pillow support. Denies current questions/concerns. Call light in reach. Will monitor.
--- NOTE | 2024-01-04 05:44 | NUR ---
Patient rested off and on this shift. Received oxycodone for pain x2. Was repositioned Q2H. Rawlins traction in place. Patient has been repositioned with hip bump and pillow underneath lower leg but c/o more discomfort. Will reposition self with out good alignment. Denies current needs. Will monitor.
[2024-01-04 06:54] LABS: BASO % 0.1 % (0.0-2.0); EOS # 0.1 K/mm3 (0.0-0.7); EOS % 0.7 % (0.0-4.0); GRAN # 6.1 K/mm3 (1.4-6.5); GRAN % 71.1 % (42.2-75.2); LYMPH # 1.5 K/mm3 (1.2-3.4); LYMPH % 17.1 % (20.0-51.0); MEAN CELL VOLUME 94 fl (80.0-100.0); MEAN CORPUSCULAR HGB CONC 35 g/dl (33.0-37.0); MEAN PLATELET VOLUME 10.3 fl (7.4-10.4); MONO # 0.9 K/mm3 (0.1-0.6); MONO % 10.5 % (1.7-9.3); PLATELET COUNT 170 K/mm3 (130-400); RED BLOOD COUNT 2.69 M/mm3 (4.20-5.60); REDCELL DISTRIBUTION WIDTH-CV 12.6 % (11.5-14.5)
[2024-01-04 07:04] LABS: CALCIUM 8.9 mg/dL (8.4-10.2); CREATININE, serum 0.8 mg/dL (0.72-1.25); MAGNESIUM 1.7 mg/dL (1.6-2.6); POTASSIUM 4.7 mEq/L (3.5-4.5)
[2024-01-04 07:05] LABS: HEMATOCRIT 25.3 % (42.0-52.0); HEMOGLOBIN 8.9 g/dl (13.5-18.0); MEAN CORPUSCULAR HEMOGLOBIN 33 pg (27-31)
--- NOTE | 2024-01-04 09:00 | NUR ---
Pt doing okay this morning. States that his pain is not too bad. Did assist pt with eating as his hands get to shaking quite a bit due to the parkinsons. Pt has healing ulcer to his left heel and possible ulcer to right great toe. Area is dime sized and red/appears scabbed. Pt has generalized putting edema. Gibson catheter to dependent drainage. Right leg is in bucks traction. Obvious protrusion of right femur. Call light within reach
--- NOTE | 2024-01-04 12:30 | NUR ---
Pt continues to do okay, states he does not need any pain medication at this time. Continue to assist pt with his meals. Pt being repositioned as able.
--- NOTE | 2024-01-04 15:30 | NUR ---
Gibson catheter started leaking. Irrigated catheter with no issues. Deflated and reinflated the balloon. Output that leaked was dark and strong smelling. Cultures being done on urine sent to lab. PRN pain medication given during this time. Pts also present, updated with 0800 surgery time.
[2024-01-04 16:27] LABS: CALCIUM 8.5 mg/dL (8.4-10.2); CREATININE, serum 0.8 mg/dL (0.72-1.25)
[2024-01-04] MEDS ORDERED: Sodium Zirconium Cyclosilicate for Oral Susp 10 GM PACKET PO ONE (17:00)
--- NOTE | 2024-01-04 20:06 | NUR ---
Patient resting in bed, drowsy but arousable, reports minimal pain at this time, PS of 4/10, states that he doesn't need pain meds at this time, took pills fine, with INT to right forearm flushes well and infusing well, with kapoor to dependent drainage, very minimal leaking observed, will continue to monitor, still on bucks traction, instructed to be on NPO, fluid restriction maintained, denies further needs, call light and personal items within reach, will continue to monitor.
[2024-01-05] VITALS (19 sets, daily range): BP systolic 88–151; BP diastolic 40–75; PULSE 66–89; TEMP 97.5–98.8
--- NOTE | 2024-01-05 00:16 | NUR ---
Patient resting in bed, states pain is still at 4/10, medicated with morphine, NPO maintained, will reposition patient after 30 minutes and patient is agreeable, still on bucks traction.
--- NOTE | 2024-01-05 00:55 | NUR ---
Patient repositioned at this time and applied pillow to his left side, kapoor catheter care provided, noted pus around the penile area, will continue to monitor.
[2024-01-05 07:04] LABS: BASO % 0.2 % (0.0-2.0); EOS % 0.3 % (0.0-4.0); GRAN # 10.7 K/mm3 (1.4-6.5); GRAN % 82.9 % (42.2-75.2); LYMPH # 1.1 K/mm3 (1.2-3.4); LYMPH % 8.5 % (20.0-51.0); MEAN CELL VOLUME 95 fl (80.0-100.0); MEAN CORPUSCULAR HGB CONC 35 g/dl (33.0-37.0); MEAN PLATELET VOLUME 10.2 fl (7.4-10.4); MONO % 7.6 % (1.7-9.3); PLATELET COUNT 155 K/mm3 (130-400); RED BLOOD COUNT 2.58 M/mm3 (4.20-5.60); REDCELL DISTRIBUTION WIDTH-CV 12.7 % (11.5-14.5)
[2024-01-05 07:12] LABS: HEMATOCRIT 24.4 % (42.0-52.0); HEMOGLOBIN 8.5 g/dl (13.5-18.0); MEAN CORPUSCULAR HEMOGLOBIN 33 pg (27-31)
[2024-01-05 07:24] LABS: CALCIUM 8.9 mg/dL (8.4-10.2); CREATININE, serum 0.77 mg/dL (0.72-1.25)
[2024-01-05] MEDS ORDERED: hydrALAZINE 20 MG/ML 1 ML VIAL IV PRN (07:30)
[2024-01-05] MEDS ORDERED: HYDROmorphone 1 MG/1 ML SYRINGE [PACU/SDC ONLY] IV PRN ×2 (07:30)
[2024-01-05] MEDS ORDERED: Ondansetron 4 MG/2 ML VIAL IV PRN ×2 (07:30→10:45)
[2024-01-05] MEDS ORDERED: LR 1,000 ML IV SCH (07:30)
[2024-01-05] MEDS ORDERED: fentaNYL 50 MCG/ML 1 ML SYRINGE/VIAL [PACU/SDC ONLY] IV PRN (07:30)
--- NOTE | 2024-01-05 07:34 | NUR ---
Pt off the floor for surgery at this time. Pt present and went down to waiting room
[2024-01-05] MEDS ORDERED: dexAMETHasone 10 MG/ML VIAL ONE (07:35)
[2024-01-05] MEDS ORDERED: NS 10 ML IV ONE (07:35)
[2024-01-05] MEDS ORDERED: fentaNYL 50 MCG/ML 2 ML VIAL ONE (07:35)
[2024-01-05] MEDS ORDERED: Phenylephrine 10 MG/ML VIAL ONE (08:53)
[2024-01-05] MEDS ORDERED: ePHEDrine 50 MG/ML VIAL ONE (09:06)
[2024-01-05] MEDS ORDERED: Sodium Zirconium Cyclosilicate for Oral Susp 10 GM PACKET PO ONE (10:00)
[2024-01-05] MEDS ORDERED: Topical Skin Adhesive 1 EACH (1 ML) TOP ONE (10:31)
[2024-01-05] MEDS ORDERED: Magnes Hydrox (MOM) 80 MG/ML 30 ML CUP PO PRN (10:45)
[2024-01-05] MEDS ORDERED: NS 1,000 ML IV SCH (10:45)
--- NOTE | 2024-01-05 12:00 | NUR ---
Pt arrived back from surgery. He is awake and having no complaints of pain. Ice pack to his right hip. Aquacell and gauze/tegaderm x2 is CDI to the right hip. SCDs on bilaterally. Stopped IVF per order from Dr Rodrigues. Urine specimen sent to lab as output is becoming more dark and has mucus present. Pts family present at bedside, lunch tray ordered for him
[2024-01-05 12:29] LABS: COLLECTION METHOD IN
[2024-01-05 13:18] LABS: URINE APPEARANCE TURBID (CLEAR/HAZY); URINE COLOR DARK YELLOW (YELLOW); URINE GLUCOSE Negative (NEGATIVE); URINE KETONE 1+ (NEGATIVE); URINE PROTEIN(semi-quant) 2+ (NEGATIVE)
[2024-01-05 13:19] LABS: URINE BLOOD 2+ (NEGATIVE); URINE NITRATE Positive (NEGATIVE)
[2024-01-05] MEDS ORDERED: ceFAZolin 2 G in Water For Injection,Sterile 20 ML IV SCH (14:41)
[2024-01-05] MEDS ORDERED: cefTRIAXone 2 G in Water For Injection,Sterile 20 ML IV SCH (15:00)
[2024-01-05 15:08] LABS: HEMATOCRIT 27.2 % (42.0-52.0); HEMOGLOBIN 9.3 g/dl (13.5-18.0)
--- NOTE | 2024-01-05 16:00 | NUR ---
PT continues to do well, VS stable. PT more awake now that surgery is completed. Ice to right hip, drsgs remain CDI. SCDs on bilaterally and heels floated.
--- NOTE | 2024-01-05 19:07 | NUR ---
Pt repositioned throughout the day, tolerated pain with no complaints. Heels elevated and kept ice on right hip off and on. Pt did well with eating his meals today
--- NOTE | 2024-01-05 20:25 | NUR ---
Assessment complete. A&Ox3. Denies nausea/shortness of breath. Received oxycodone wit good pain control-rating pain 2/10-described as ache. INT to right forearm flushes without difficulty. NO s/s of infiltration noted. Aquacell to right hip CDI. Also has two gauze/tape dressings-one below/one above that are both CDI. Gibson cath with dark yellow/cloudy urine drainging well. Assisted with cynthia lucas. Plan of care discussed for this shift to include meds/pain control/repositioning. Verbalizes understanding. Call light in reach. Will monitor.
[2024-01-05] MEDS ORDERED: Sennosides/Docusate 8.6-50 MG TAB PO SCH (21:00)
[2024-01-05] MEDS ORDERED: Melatonin 3 MG TAB PO PRN (21:00)
--- NOTE | 2024-01-05 23:56 | NUR ---
Patient resting eyes closed. No s/s of pain or discomfort noted. Currently on O2@2L/NC with O2 saturation of 98%. O2 decreased to 1L/NC. Will recheck in 30 minutes.
[2024-01-06 03:36] VITALS: BP 117/67; PULSE 70; TEMP 97.6
[2024-01-06 03:46] VITALS: BP_SYST 117
--- NOTE | 2024-01-06 05:42 | NUR ---
Patient had an uneventful night. Received scheduled tylenol for pain with good results. Repositioned in bed with pillow support every 2 hours. Gibson cath with dark yellow cloudy urine. INT to right upper arm flushes without difficulty. NO s/s of infiltration noted. Teds are not on due to skin issues. Aquacell to right hip incision CDI. Also noted to have gauze/tape dressing above and below that are both C/D/I. Refusing ice application due to being to cold. Denies current needs. Call light in reach. Will monitor.
[2024-01-06 06:24] LABS: GRAN # 9.4 K/mm3 (1.4-6.5); GRAN % 86.7 % (42.2-75.2); LYMPH # 0.6 K/mm3 (1.2-3.4); LYMPH % 5.9 % (20.0-51.0); MEAN CELL VOLUME 92 fl (80.0-100.0); MEAN CORPUSCULAR HGB CONC 35 g/dl (33.0-37.0); MEAN PLATELET VOLUME 10.2 fl (7.4-10.4); MONO # 0.7 K/mm3 (0.1-0.6); MONO % 6.6 % (1.7-9.3); PLATELET COUNT 173 K/mm3 (130-400); RED BLOOD COUNT 2.61 M/mm3 (4.20-5.60); REDCELL DISTRIBUTION WIDTH-CV 13.7 % (11.5-14.5)
[2024-01-06 06:34] LABS: HEMATOCRIT 24.1 % (42.0-52.0); HEMOGLOBIN 8.4 g/dl (13.5-18.0); MEAN CORPUSCULAR HEMOGLOBIN 32 pg (27-31)
[2024-01-06 06:44] LABS: CALCIUM 8.9 mg/dL (8.4-10.2); CREATININE, serum 0.93 mg/dL (0.72-1.25); MAGNESIUM 1.7 mg/dL (1.6-2.6)
--- NOTE | 2024-01-06 06:50 | NUR ---
Bedside report given to LUZ Danielson
[2024-01-06 07:54] VITALS: BP 116/71; PULSE 70; TEMP 98
[2024-01-06 09:00] VITALS: BP_SYST 116
[2024-01-06] MEDS ORDERED: Calcium Carbonate 500 MG TAB PO SCH (09:00)
[2024-01-06] MEDS ORDERED: Ascorbic Acid 500 MG TAB PO SCH (09:00)
--- NOTE | 2024-01-06 09:16 | NUR ---
PT ATE 100 % OF BREAKFAST. INCONTINENT OF BOWEL X2. THERAPY IN TO WORK WITH PT. DRESSINGS TO RIGHT HIP CDI. WITH GAUZE AND AQUACEL OVER INCISION SITES. PT IS WC BOUND BASELINE. PT RESIDES AT [facility] AND PLANS ON DOING REHAB THERE. INCONTINENT CARE PROVIDED. KHAN CATHETER TO DD PER ORDERS. AM MEDS GIVEN ORDERED.
[2024-01-06] MEDS ORDERED: Sodium Zirconium Cyclosilicate for Oral Susp 10 GM PACKET PO ONE (11:15)
--- NOTE | 2024-01-06 11:25 | NUR ---
SHADI attended clinical rounds. Patient from [facility] and will return skilled. Updated clinicals faxed by SHADI Baig. This SHADI spoke with Otto at [facility] who states they are prepared to accept patient back if stable for discharge. SHADI met with patient to discuss Medicare IM form. Patient agreeable to discharge and is anxious for discharge so he doesn't miss his dental appointment scheduled for tomorrow. Patient unable to sign IM form due to Parkinson's Disease and authorized SW to sign on his behalf. Original in chart, copy to patient. Discharge plan: [facility]
[2024-01-06] MEDS ORDERED: CEFTIN500 MG PO (11:30)
[2024-01-06] MEDS ORDERED: OSCAL 500 TAB500 MG PO (11:32)
[2024-01-06] MEDS ORDERED: TYLENOL 500MG500 MG PO (11:32)
[2024-01-06] MEDS ORDERED: ROXICODONE 55 MG/TAB PO (11:32)
[2024-01-06] MEDS ORDERED: MIRALAX PA17 GM/Dose PO (11:33)
[2024-01-06] MEDS ORDERED: SENEXON-S 50-81 EACH PO (11:34)
[2024-01-06] MEDS ORDERED: VITAMIN C500 MG PO (11:34)
[2024-01-06] MEDS ORDERED: DUO-KAPS1 CAP PO (11:35)
[2024-01-06 11:36] VITALS: BP 114/61; PULSE 70; TEMP 97.8
[2024-01-06] MEDS ORDERED: Multivitamin TAB PO SCH (12:00)
[2024-01-06 13:09] VITALS: BP_SYST 114
--- NOTE | 2024-01-06 14:34 | NUR ---
DISCONTINUED KHAN CATHETER PT TOLERATED WELL. 300 MLS OF CONCENTRATED URINE.
--- NOTE | 2024-01-06 14:52 | NUR ---
SHADI spoke with Bailee at [facility] to follow up on discharge. Transportation was originally set for 1430. SHADI notified by Bailee that they were running late and will burr picker patient as soon as possible. Nursing staff notified of delay. Discharge plan: [facility] skilled
--- NOTE | 2024-01-06 15:27 | NUR ---
ATTEMPTED TO CALL REPORT TO [facility] LEFT MESSAGE WITH VOICE MAIL.
--- NOTE | 2024-01-06 15:35 | NUR ---
[facility] RETURNED CALL FOR REPORT AND COMPLETED PT REPORT.
[2024-01-06] MEDS ORDERED: Insulin Glargine-ygfn (Lantus) SQ SCH (21:00)
[2024-01-06] MEDS ORDERED: Apixaban 5 MG TABLET PO SCH (21:00)
[2024-01-07] MEDS ORDERED: Polyethylene Glycol 3350 17 GM PDS PO PRN (09:00)
== END 2024-01-06 15:15 | DRG 480 ==
LOC: COL.ER 19:32 → SURG 21:42
PROVIDERS: Emergency Medicine; Nurse Practitioner Family; Orthopaedic Surgery; ADMIT Internal Medicine
PROC: 30233N1 Transfusion of Nonautologous Red Blood Cells into Peripheral Vein, Percutaneous Approach (ICD-10-PCS; 2024-01-05)
PROC: 0QS606Z Reposition Right Upper Femur with Intramedullary Internal Fixation Device, Open Approach (ICD-10-PCS; principal; 2024-01-05 08:00)
DX: S72.21XA Displaced subtrochanteric fracture of right femur, initial encounter for closed fracture (principal); J96.01 Acute respiratory failure with hypoxia; E22.2 Syndrome of inappropriate secretion of antidiuretic hormone; N39.0 Urinary tract infection, site not specified; I48.20 Chronic atrial fibrillation, unspecified; E87.5 Hyperkalemia; E83.42 Hypomagnesemia; D72.829 Elevated white blood cell count, unspecified; Z66 Do not resuscitate; I10 Essential (primary) hypertension; E78.5 Hyperlipidemia, unspecified; D64.9 Anemia, unspecified; E11.9 Type 2 diabetes mellitus without complications; G20.A1 Parkinson's disease without dyskinesia, without mention of fluctuations; W18.39XA Other fall on same level, initial encounter; E03.9 Hypothyroidism, unspecified; E87.8 Other disorders of electrolyte and fluid balance, not elsewhere classified; T50.995A Adverse effect of other drugs, medicaments and biological substances, initial encounter; N40.0 Benign prostatic hyperplasia without lower urinary tract symptoms; Z95.0 Presence of cardiac pacemaker; Z88.8 Allergy status to other drugs, medicaments and biological substances; Z79.01 Long term (current) use of anticoagulants; Y93.89 Activity, other specified; Y92.092 Bedroom in other non-institutional residence as the place of occurrence of the external cause; Z79.4 Long term (current) use of insulin; Z79.899 Other long term (current) drug therapy; Z79.890 Hormone replacement therapy; Z79.84 Long term (current) use of oral hypoglycemic drugs; Z87.891 Personal history of nicotine dependence; Z23 Encounter for immunization
CPT/HCPCS: A4314; A6197; A9270; A9284; C1713; C1769; J0690; J0696; J1100; J1815; J1940; J2270; J2371; J2704; J2795; J3010; J3475; J7030; P9016

== ENCOUNTER 2024-01-22 10:52 | Inpatient (IN) | payer MEDICARE, MEDICAID ==
[~2024-01-22] VITALS: Ht 177.8 cm; Wt 96.7 kg
[~2024-01-22 10:52] MED LIST changes: +B-121000 MCG PO; +BASAGLAR K100 UNIT/1 SQ; +CEFTIN500 MG PO; +CORDARONE200 MG/TAB PO; +DUO-KAPS1 CAP PO; +GLUCOPHAGE500 MG/TAB PO; +LIQUIFILM TEARS15 ML OU; +MUCINEX 60600 MG/TA1 PO; +NORCO 325 MG-51 TAB PO; +NOVOLOG FLEX100 U/ML SQ; +OSCAL 500 TAB500 MG PO; +REQUIP0.25 MG PO; +ROXICODONE 55 MG/TAB PO; +SENEXON-S 50-81 EACH PO; +SYNTHROID0.1 MG/TAB PO; +TYLENOL 500MG500 MG PO; +VITAMIN C500 MG PO
[2024-01-22 11:28] LABS: BASO % 0.2 % (0.0-2.0); EOS # 0.1 K/mm3 (0.0-0.7); EOS % 0.6 % (0.0-4.0); GRAN # 10.7 K/mm3 (1.4-6.5); GRAN % 85.8 % (42.2-75.2); LYMPH # 0.8 K/mm3 (1.2-3.4); LYMPH % 6.2 % (20.0-51.0); MEAN CELL VOLUME 98 fl (80.0-100.0); MEAN CORPUSCULAR HGB CONC 34 g/dl (33.0-37.0); MEAN PLATELET VOLUME 9.5 fl (7.4-10.4); MONO # 0.8 K/mm3 (0.1-0.6); MONO % 6.2 % (1.7-9.3); PLATELET COUNT 331 K/mm3 (130-400); RED BLOOD COUNT 2.47 M/mm3 (4.20-5.60); REDCELL DISTRIBUTION WIDTH-CV 16.8 % (11.5-14.5)
[2024-01-22] MEDS ORDERED: NS 1,000 ML IV SCH (11:30)
[2024-01-22 11:34] LABS: HEMATOCRIT 24.2 % (42.0-52.0); HEMOGLOBIN 8.2 g/dl (13.5-18.0); MEAN CORPUSCULAR HEMOGLOBIN 33 pg (27-31)
[2024-01-22 11:49] LABS: ALBUMIN 2.9 g/dL (3.4-4.8); BILIRUBIN,TOTAL 0.8 mg/dL (0.2-1.2); CALCIUM 9.3 mg/dL (8.4-10.2); CREATININE, serum 0.85 mg/dL (0.72-1.25); TOTAL PROTEIN 5.9 g/dl (6.2-8.1)
[2024-01-22] MEDS ORDERED: fentaNYL 50 MCG/ML 2 ML VIAL IV ONE (12:30)
[2024-01-22 13:00] VITALS: BP_SYST 141
[2024-01-22] MEDS ORDERED: cefTRIAXone 2 G in Water For Injection,Sterile 20 ML IV ONE (13:00)
[2024-01-22 13:03] LABS: COLLECTION METHOD RANDOM VOIDED
[2024-01-22 13:14] LABS: PH 5.5 (5.0-8.5); URINE APPEARANCE CLEAR (CLEAR/HAZY); URINE BLOOD NEGATIVE (NEGATIVE); URINE COLOR Dark Yellow (YELLOW); URINE GLUCOSE NEGATIVE (NEGATIVE); URINE KETONE TRACE (NEGATIVE); URINE NITRATE NEGATIVE (NEGATIVE); URINE PROTEIN(semi-quant) TRACE (NEGATIVE); URINE UROBILINOGEN 0.2 E.U/dL (0.2-1.0)
[2024-01-22] MEDS ORDERED: VITAMIN C500 MG PO (13:47)
[2024-01-22] MEDS ORDERED: COMPLETE MULTI1 TAB PO (13:48)
[2024-01-22] MEDS ORDERED: ANTACID500 M1 PO (13:48)
[2024-01-22] MEDS ORDERED: VITAMIN D 50,1.25 MG PO (13:49)
[2024-01-22] MEDS ORDERED: TYLENOL 500MG500 MG PO (13:55)
[2024-01-22] MEDS ORDERED: SYNTHROID0.1 MG/TAB PO (13:56)
[2024-01-22] MEDS ORDERED: ROXICODONE 55 MG/TAB PO (13:56)
[2024-01-22] MEDS ORDERED: HYDROCORTISONE30 G3 TP (13:57)
[2024-01-22 13:58] VITALS: BP 147/67; PULSE 110; TEMP 98.5
[2024-01-22] MEDS ORDERED: BASAGLAR K100 UNIT/1 SQ (14:00)
[2024-01-22] MEDS ORDERED: Ondansetron 4 MG/2 ML VIAL IV PRN (14:00)
[2024-01-22] MEDS ORDERED: Acetaminophen 500 MG TAB PO PRN (14:00)
[2024-01-22] MEDS ORDERED: NOVOLOG FLEX100 U/ML SQ (14:01)
[2024-01-22] MEDS ORDERED: ARTIFICIAL TEAR15 M7 OP (14:03)
[2024-01-22] MEDS ORDERED: cefTRIAXone 1 G in Water For Injection,Sterile 10 ML IV SCH (14:15)
[2024-01-22] MEDS ORDERED: Albuterol/Ipratropium 3 MG-0.5 MG/3 ML Neb Soln IH PRN (14:15)
--- NOTE | 2024-01-22 14:51 | NUR ---
Patient arrived to the medical unit, room 358, A&O X 4, VSS. Some SOB while speaking, states pain 6/10 on right hip. Assessment intake completed.
[2024-01-22 16:30] VITALS: BP_SYST 141
[2024-01-22] MEDS ORDERED: Magnesium Oxide 400 MG TAB PO SCH (17:00)
[2024-01-22] MEDS ORDERED: Insulin Lispro (HumaLOG) SQ SCH (17:00)
--- NOTE | 2024-01-22 18:34 | NUR ---
PT FOUND AUDIBLEY WHEEZING SATTING 86% ON 3L. BREATHING TX GIVEN, PT NOW 94% ON 3L.
[2024-01-22] MEDS ORDERED: Albuterol/Ipratropium 3 MG-0.5 MG/3 ML Neb Soln IH SCH (19:00)
--- NOTE | 2024-01-22 19:27 | NUR ---
Call placed to CYNTHIA Julio to repott the open skin on left heel of pt. Picture reported and sent per protocol.
[2024-01-22] MEDS ORDERED: Furosemide 40 MG/4 ML VIAL IV ONE (19:30)
--- NOTE | 2024-01-22 19:45 | NUR ---
CALL PLACED TO HOSPITALISTZOILA. PATIENT EXHIBITED LABORED BREATHING WITH CLAVICLE RETRACTIONS. O2 SAT WAS 91% ON 2L NC. BLE AND BUE 3+ EDEMA. CALL PLACED TO RT WELL. 19:47 HOSPITALIST ARRIVED BEDSIDE AND VORB FOR 20 MG IV LASIXS NOW, KHAN, BNP AND BMP NOW GIVEN. RT ASSESSED AND INCREASED O2 TO 3L.
--- NOTE | 2024-01-22 20:00 | NUR ---
UPON SHIFT REPORT/CHANGE. PATIENT WAS NOTED TO HAVE LABORED BREATHING WITH CLAVICLE RETRACTIONS. PATIENT COUGHING FROTHY CLEAR SPUTUM O2 SAT WAS 91% ON RA. PROFOUND BLE AND BUE EDEMA NOTED. CALL PLACED TO BOTH RT AND HOSPITALIST, ZOILA. ORDERS FOR LASIXS 20MG AND KHAN PLACEMENT GIVEN. RT INCREASED O2 FROM 2L TO 3L. PATIENT DIURESING WELL WITH 2000ML OUTPUT. MED PASS COMPLETE. VS ARE WNL. CALL LIGHT WITHIN REACH.
--- NOTE | 2024-01-22 20:05 | NUR ---
PATIENT DIURESING WELL-1000ML NOTED IN KHAN.
[2024-01-22 20:33] VITALS: BP 125/64; PULSE 77; TEMP 98.7
[2024-01-22 20:41] VITALS: BP 152/70; PULSE 77; TEMP 98
[2024-01-22 20:46] LABS: CALCIUM 7.8 mg/dL (8.4-10.2); CREATININE, serum 0.74 mg/dL (0.72-1.25); POTASSIUM 4.8 mEq/L (3.5-4.5)
[2024-01-22 21:00] VITALS: BP_SYST 152
[2024-01-22] MEDS ORDERED: Atorvastatin 10 MG TAB PO SCH (21:00)
[2024-01-22] MEDS ORDERED: Carboxymethylcellulose PF Ophth 0.4 ML DROPPERETTE OP SCH (21:00)
[2024-01-22] MEDS ORDERED: oxyCODONE 5 MG TAB PO SCH (21:00)
[2024-01-22] MEDS ORDERED: Polyethylene Glycol 3350 17 GM PDS PO SCH (21:00)
[2024-01-22] MEDS ORDERED: Hydrocortisone 1% Cream 30 GM TUBE TP SCH (21:00)
[2024-01-22] MEDS ORDERED: Carbidopa/Levodopa CR 25-100MG TAB PO SCH (21:00)
[2024-01-22] MEDS ORDERED: Apixaban 5 MG TABLET PO SCH (21:00)
[2024-01-22] MEDS ORDERED: rOPINIRole 0.5 MG TAB PO SCH (21:00)
--- NOTE | 2024-01-22 23:00 | NUR ---
CALL PLACED TO HOSPITALIST BNP RESULTED-[id number]
[2024-01-23] VITALS (13 sets, daily range): BP systolic 101–125; BP diastolic 46–67; PULSE 65–79; TEMP 97.2–98.3
--- NOTE | 2024-01-23 02:55 | NUR ---
ROUNDED ON PATIENT, CONTINUES TO DIURESIS WELL. REPIRATORY EFFORT HAS IMPROVED. PATIENT MORE ENGAGED WITH CONVERSATION. DTI NOTED ON RT FOOT R/T TO BOOT PROTECTOR STRAP AND EDEMA-STRAP LOOSENED. PATIENT STATES NO NEEDS AT THIS TIME.
[2024-01-23] MEDS ORDERED: Glucagon 1 MG VIAL IM PRN (07:30)
[2024-01-23] MEDS ORDERED: Dextrose 50% Water 25 GM/50 ML SYRINGE IV PRN (07:30)
[2024-01-23] MEDS ORDERED: Dextrose (Glucose) 15 GM (4 x 3.75 GM) Chewable TABLET PACK PO PRN (07:30)
[2024-01-23] MEDS ORDERED: Cyanocobalamin (Vit B-12) 1,000 MCG TAB PO SCH (09:00)
[2024-01-23] MEDS ORDERED: Cholecalciferol (Vit D3) 1000 Units TAB PO SCH (09:00)
[2024-01-23] MEDS ORDERED: Ascorbic Acid 500 MG TAB PO SCH (09:00)
[2024-01-23] MEDS ORDERED: Amiodarone 200 MG TAB PO SCH (09:00)
[2024-01-23 10:20] LABS: BASO % 0.2 % (0.0-2.0); EOS # 0.1 K/mm3 (0.0-0.7); EOS % 0.9 % (0.0-4.0); GRAN # 8.5 K/mm3 (1.4-6.5); GRAN % 82.1 % (42.2-75.2); LYMPH # 0.8 K/mm3 (1.2-3.4); LYMPH % 7.9 % (20.0-51.0); MEAN CELL VOLUME 97 fl (80.0-100.0); MEAN CORPUSCULAR HGB CONC 34 g/dl (33.0-37.0); MEAN PLATELET VOLUME 9.5 fl (7.4-10.4); MONO # 0.9 K/mm3 (0.1-0.6); MONO % 8.3 % (1.7-9.3); PLATELET COUNT 279 K/mm3 (130-400); RED BLOOD COUNT 2.29 M/mm3 (4.20-5.60); REDCELL DISTRIBUTION WIDTH-CV 16.7 % (11.5-14.5)
--- NOTE | 2024-01-23 10:20 | NUR ---
PT LAYING IN BED UPON ENTERING. ASSESSMENT DONE, MEDS GIVEN. PT REFUSED HYDROCORTISONE AND EYE DROPS. PRN TYLENOL GIVEN FOR HIP PAIN. VOLTAREN GEL PLACED TO PTS NECK PER REQUEST. RIGHT HIP INCISIONS CLEAN DRY AND INTACT. KHAN IN PLACE DRAINING CLEAR ORANGE URINE. WOUND TO LEFT HEEL, TOP OF RIGHT FOOT, AND SACRUM, SEE WOUND CARE NOTES. PT DENIES NEEDS. BED IN LOWEST POSITION, CALL LIGHT IN REACH, BED ALARM ON.
[2024-01-23 10:24] LABS: HEMATOCRIT 22.3 % (42.0-52.0); HEMOGLOBIN 7.6 g/dl (13.5-18.0); MEAN CORPUSCULAR HEMOGLOBIN 33 pg (27-31)
[2024-01-23 10:42] LABS: CALCIUM 8.4 mg/dL (8.4-10.2); CREATININE, serum 0.69 mg/dL (0.72-1.25); MAGNESIUM 1.6 mg/dL (1.6-2.6); POTASSIUM 4.6 mEq/L (3.5-4.5)
--- NOTE | 2024-01-23 13:44 | NUR ---
D: Laser Machine Operator stopped by room on rounds. A: Pt was resting and content. Pt has no needs right now. P: Laser Machine Operator informed pt that if he needed anything to let his nurse know. Laser Machine Operator will follow up as needed.
--- NOTE | 2024-01-23 15:03 | NUR ---
, Kristin Gutiérrez and myself met w/pt and Linh regarding Goals of Care. Dr. Chaudhry discussed the electrolyte imbalances and the overall decline pt has undergone since his femur fx/repair 3 wks ago. and pt decided he would continue aggressive treatment and return to SNF to continue w/PT/OT so he can regain as much function as possible.
--- NOTE | 2024-01-23 15:42 | NUR ---
Casualty Claims Supervisor met with patient to complete initial intake. Patient lives at [facility] and is currently getting skilled therapy after a recent fracture and hospitalization. Patient sees Dr. Chaudhry for primary care and also still sees a provider at [facility]. Patient advised he mostly uses a wheelchair and that therapy has been working on standing with him. Patient stated he uses oxygen on and off. Later SW attended a meeting with patient, his Linh (ph#[phone]), RN-CM and Hospitalist to discuss goals of care. After discussion, patient and would like to continue aggressive care and skilled at [facility]. SHADI updated Otto at [facility] and updates were sent via secure email. Discharge Plan: [facility] SNF
--- NOTE | 2024-01-23 21:00 | NUR ---
UPON SHIFT ASSESSMENT PATIENT WAS NAPPING IN BED. BLLE STILL EXHIBIT 3+EDEMA. PATIENT IS AXO X3 AND KHAN IS ACTIVELY DRAINING VIVIANA CLEAR URINE. HE DENIES SOA OR PAIN AT THIS TIME. CALL LIGHT WITHIN REACH.
--- NOTE | 2024-01-23 22:24 | NUR ---
patient c/o SOA. O2 RECHECK 90% NC AT 1L. TITRATED 02 TO 3L PATINET SATING AT 94%.
[2024-01-23] MEDS ORDERED: Methocarbamol 500 MG TAB PO ONE (23:00)
--- NOTE | 2024-01-23 23:00 | NUR ---
CALL PLACED TO [facility]OSPITALIST[facility]LON. PATIENT C/O OF 01/21 RLLE PAIN, STATES, "IT HURTS BAD, IT FEELS LIKE MY LEG IS DRAWING UP." TORB FOR ROBAXIN GIVEN.
[2024-01-24] VITALS (16 sets, daily range): BP systolic 103–145; BP diastolic 50–76; PULSE 66–81; TEMP 97.7–98.6
--- NOTE | 2024-01-24 | NUR ---
ROUNDED ON PATIENT. PATIENT PAIN RESOLVING-PATIENT DENIES PAIN. VS ARE WNL.
--- NOTE | 2024-01-24 08:05 | NUR ---
PT REPORTS RIGHT LEG CRAMPING AND O2 SATS 90% ON 2L. O2 UP TO 3L AND PT SATS 94%. DR LI CALLED AND NOTIFIED.
[2024-01-24] MEDS ORDERED: rOPINIRole 0.5 MG TAB PO SCH (09:00)
--- NOTE | 2024-01-24 09:05 | NUR ---
PT LAYING IN BED UPON ENTERING. ASSESSMENT DONE, MEDS GIVEN PER ORDER. PT REFUSED EYE DROPS, TUMS, AND DENIES NEED FOR HYDROCORTISONE CREAM AT THIS TIME. PT DENIES PAIN BUT REPORTS RIGHT LEG "CRAMPING", HOSPITALIST AWARE AND MED CHANGES ORDERED. INT TO RIGHT AC PATENT. KHAN PATENT WITHOUT ISSUES. RIGHT HIP POST OP SITE CDI, NO DRESSING. PT ON 3L NASAL CANNULA. SCROTUM EXCORIATION NOTED. WOUND TO LEFT HEEL AND RIGHT FOOT, REDNESS NOTED TO RIGHT HEEL AND SACRUM, SEE WOUNDCARE NOTES. WARMTH NOTED TO BILATERAL LOWER EXTREMITIES, REDNESS NOTED TO LEFT LOWER EXTREMITY, AND ECCHYMOSIS NOTED TO RIGHT LOWER EXTREMITY. PT DENIES NEEDS. BED IN LOWEST POSITION, CALL LIGHT IN REACH, BED ALARM ON
[2024-01-24 10:32] LABS: HEMATOCRIT 21.1 % (42.0-52.0); HEMOGLOBIN 7.2 g/dl (13.5-18.0)
[2024-01-24 10:41] LABS: CALCIUM 8.1 mg/dL (8.4-10.2); CREATININE, serum 0.71 mg/dL (0.72-1.25); POTASSIUM 4.7 mEq/L (3.5-4.5)
--- NOTE | 2024-01-24 13:23 | NUR ---
Wildland Fire Fighter attended clinical rounds with the team. Patient needs a blood transfusion and will not discharge to [facility] today. SW contacted Otto at [facility] and sent updates via secure email. SHADI also contacted patient's , Linh to provide update. Discharge Plan; [facility] SN[facility]
--- NOTE | 2024-01-24 14:23 | NUR ---
CONSENT SIGNED AND 1 UNIT PACKED RED BLOOD CELLS STARTED AT 60MLS/HR IN RIGHT AC. VERIFIED BY LUZ WILKINS. PT EATING LUNCH AT THIS TIME. PT EDUCATED ON TRANSFUSION REACTIONS SIGNS/SYMPTOMS AND VERBALIZED UNDERSTANDING. THIS NURSE AT BEDSIDE FOR FIRST 15 MINUTES. PT DENIES NEEDS. BED IN LOWEST POSITION, CALL LIGHT IN REACH, BED ALARM ON
--- NOTE | 2024-01-24 16:26 | NUR ---
STOOL OCCULT COLLECTED AND SENT TO LAB
--- NOTE | 2024-01-24 16:55 | NUR ---
THIS NURSE CALLED HOSPITALIST AND ASKED WHEN THEY WOULD LIKE H&H RECHECK AND THIS NURSE TOLD RECHECK WITH MORNING LABS IS OKAY. HOSPITALIST NOTIFIED THAT STOOL OCCULT IS NEGATIVE
[2024-01-25 00:04] VITALS: BP_SYST 103
--- NOTE | 2024-01-25 00:25 | NUR ---
patient lying in bed, alert and oriented x4. denies chest pain and shortness of breath. IV in LAC is patent, site is CDI. right hip site, red sacrum with mepilex, top of right foot with small red abrasion, left heel small wound with mepilex, all CDI. BLE with nonpitting edema. pt turned/repositioned q2hrs. pt has no further needs, questions or concerns at this time. call light within reach. fall precautions in place, will continue to monitor.
[2024-01-25 03:55] VITALS: BP 124/74; PULSE 69; TEMP 98.2
[2024-01-25 04:41] VITALS: BP_SYST 124
--- NOTE | 2024-01-25 07:05 | NUR ---
PT RESTING IN BED. PT IS ON 2L NC. PT IN SEIZURE PRECAUTIONS AND FALL PRECAUTIONS. PT IS NOT ON TELE. PT IS AXOX4 BUT [place]. PT HAS CALL LIGHT AND INSTRUCTED TO CALL WITH ALL NEEDS.
[2024-01-25 07:15] VITALS: BP 121/58; PULSE 54; TEMP 97.9
[2024-01-25 09:20] VITALS: BP_SYST 121
[2024-01-25 09:30] LABS: BASO % 0.4 % (0.0-2.0); EOS # 0.3 K/mm3 (0.0-0.7); EOS % 3.5 % (0.0-4.0); GRAN # 5.7 K/mm3 (1.4-6.5); LYMPH # 1.5 K/mm3 (1.2-3.4); LYMPH % 17.8 % (20.0-51.0); MEAN CELL VOLUME 93 fl (80.0-100.0); MEAN CORPUSCULAR HGB CONC 34 g/dl (33.0-37.0); MONO # 0.7 K/mm3 (0.1-0.6); MONO % 8.8 % (1.7-9.3); PLATELET COUNT 306 K/mm3 (130-400); RED BLOOD COUNT 2.69 M/mm3 (4.20-5.60); REDCELL DISTRIBUTION WIDTH-CV 17.8 % (11.5-14.5)
[2024-01-25 09:35] LABS: HEMATOCRIT 25.1 % (42.0-52.0); HEMOGLOBIN 8.5 g/dl (13.5-18.0); MEAN CORPUSCULAR HEMOGLOBIN 32 pg (27-31)
[2024-01-25] MEDS ORDERED: SODIUM CHLORI1000 M4 PO (09:48)
[2024-01-25 11:44] VITALS: BP 125/67; PULSE 69; TEMP 98.1
--- NOTE | 2024-01-25 12:34 | NUR ---
IV REMOVED. UPDATED ON TRANSPORT BACK TO [facility] AT 1300. REPORT CALLED TO [facility] ALL QUESTIONS ANSWERED.
--- NOTE | 2024-01-25 12:59 | NUR ---
SW was notified patient is set for discharge, contact [facility] and sent over clinical updates to review. Confirmed with [facility] time for berry picker and informed patient's nurse. Discharge packet was sent to [facility].
--- NOTE | 2024-01-25 13:42 | NUR ---
PATIENT WAS ESCORTED OFF OF UNIT BY [facility].
== END 2024-01-25 13:22 | DRG 641 ==
LOC: COL.ER 10:52 → MEDICAL 12:37
PROVIDERS: Family Medicine; Internal Medicine; ADMIT Internal Medicine
DX: E87.1 Hypo-osmolality and hyponatremia (principal); I48.20 Chronic atrial fibrillation, unspecified; D64.9 Anemia, unspecified; Z79.01 Long term (current) use of anticoagulants; E78.5 Hyperlipidemia, unspecified; I10 Essential (primary) hypertension; E11.9 Type 2 diabetes mellitus without complications; Z79.4 Long term (current) use of insulin; G20.A1 Parkinson's disease without dyskinesia, without mention of fluctuations; E03.9 Hypothyroidism, unspecified; N40.0 Benign prostatic hyperplasia without lower urinary tract symptoms; R09.02 Hypoxemia; E87.5 Hyperkalemia; Z66 Do not resuscitate
CPT/HCPCS: J0696; J1815; J1940; J3010; J7030; P9016